=== PATIENT | female | born 1985 ===

== ENCOUNTER 2022-10-08 18:35 | Emergency (ER) | payer SELFPAY ==
[2022-10-08] MEDS ORDERED: Lactated Ringers 1,000 ML IV STA (19:38)
[2022-10-08] MEDS ORDERED: LORazepam 1 MG Tab PO ONE (19:49)
== END 2022-10-08 21:29 | disposition home or self-care (01) ==
LOC: MW.ED 18:35
DX: R42 Dizziness and giddiness (principal); F41.0 Panic disorder [episodic paroxysmal anxiety]; Z86.16 Personal history of COVID-19; Z20.822 Contact with and (suspected) exposure to COVID-19
CPT/HCPCS: 71045; 81003; 81025; 87635; 99284; A9270; U0002

== ENCOUNTER 2023-02-01 18:33 | Emergency (ER) | payer OTHER ==
[2023-02-02] MEDS ORDERED: LORazepam 1 MG Tab PO ONE (00:19)
== END 2023-02-02 00:30 | disposition home or self-care (01) ==
LOC: MW.ED 18:33
DX: F41.9 Anxiety disorder, unspecified (principal); M25.552 Pain in left hip; Z86.16 Personal history of COVID-19; V47.6XXA Car passenger injured in collision with fixed or stationary object in traffic accident, initial encounter; Y92.410 Unspecified street and highway as the place of occurrence of the external cause
CPT/HCPCS: 93005; 99284; A9270; 99283

== ENCOUNTER 2023-08-09 16:21 | Emergency (ER) | payer BC ==
[2023-08-09] MEDS ORDERED: LORazepam 1 MG Tab PO ONE (16:46)
[2023-08-09] MEDS ORDERED: Ketorolac 30 MG/ML SDV IM STA (16:47)
[2023-08-09 16:55] LABS: BASOPHILS PERCENT AUTO 0.1 % (0.0-1.5); EOSINOPHILS ABSOLUTE AUTO 0.1 K/uL (0.0-0.7); EOSINOPHILS PERCENT AUTO 1.2 % (0.0-7.0); HEMATOCRIT 39.2 % (36.0-46.0); HEMOGLOBIN 13.1 g/dL (12.0-16.0); LYMPHOCYTES ABSOLUTE AUTO 2.7 K/uL (0.6-2.4); LYMPHOCYTES PERCENT AUTO 31.6 % (16.0-40.0); MEAN CORPUSCULAR HEMOGLOBIN 28.7 pg (27.0-32.0); MEAN CORPUSCULAR HGB CONC 33.4 g/dL (31.0-37.0); MONOCYTES ABSOLUTE AUTO 0.3 K/uL (0.0-0.8); MONOCYTES PERCENT AUTO 3.4 % (0.0-15.0); NEUTROPHILS ABSOLUTE AUTO 5.4 K/uL (1.4-5.7); NEUTROPHILS PERCENT AUTO 63.7 % (48.0-80.0); NRBC ABSOLUTE 0 K/uL; PLATELET COUNT,PLT 201 K/uL (150-400); RED BLOOD CELL COUNT 4.56 M/uL (4.30-5.90); WHITE BLOOD CELL COUNT,WBC 8.41 K/uL (4.0-11.0)
[2023-08-09 17:22] LABS: A/G RATIO 0.9 (0.9-1.6); ALANINE AMINOTRANSFERASE,ALT 22 IU/L (14-63); ALBUMIN 3.5 g/dL (3.4-5.0); ALKALINE PHOSPHATASE 57 U/L (46-116); ASPARTATE AMNIOTRANSFERASE,AST 18 IU/L (15-37); BILIRUBIN TOTAL 0.3 mg/dL (0.2-1.0); BLOOD UREA NITROGEN,BUN 12 mg/dL (7.0-18.0); CALCIUM 8.8 mg/dL (8.5-10.1); CARBON DIOXIDE,CO2 23.7 mmol/L (21.0-32.0); CHLORIDE,CL 104 mmol/L (98-107); CREATININE 0.6 mg/dL (0.6-1.0); EST CRCL DRUG DOSING (CG) 105.16 mL/min; GLUCOSE RANDOM 116 mg/dL (74-106); MAGNESIUM 1.8 mg/dL (1.8-2.4); POTASSIUM,K 3.5 mmol/L (3.5-5.1); PROTEIN TOTAL,TP 7.3 g/dL (6.4-8.2); SODIUM,NA 137 mmol/L (136-145)
[2023-08-09 17:32] LABS: ESTIMATED GFR 118 mL/min (>60)
== END 2023-08-09 18:18 | disposition home or self-care (01) ==
LOC: MW.ED 16:21
DX: R07.89 Other chest pain (principal); Z86.16 Personal history of COVID-19
CPT/HCPCS: 36415; 71045; 80053; 83735; 84443; 84484; 84703; 85025; 85379; 93005; 96372; 99285; A9270; J1885; 93010; 99283

== ENCOUNTER 2023-08-24 15:02 | Emergency (ER) | payer BC ==
[2023-08-24] MEDS ORDERED: Sodium Chloride 0.9% 10 ML Syringe FLUSH PRN (16:18)
[2023-08-24] MEDS ORDERED: Sodium Chloride 0.9% 2.5 ML Syringe FLUSH PRN (16:18)
[2023-08-24] MEDS ORDERED: Lidocaine 1% 5 ML VIAL INJECT ONE (18:18)
[2023-08-24] MEDS ORDERED: Iopamidol 755 MG/ML 500 ML Multipack Bottle IVPUSH ONE (19:15)
[2023-08-24 19:35] LABS: BASOPHILS ABSOLUTE AUTO 0.01 K/uL (0.00-0.20); BASOPHILS PERCENT AUTO 0.1 % (0.0-1.0); EOSINOPHILS ABSOLUTE AUTO 0.07 K/uL (0.00-0.45); EOSINOPHILS PERCENT AUTO 0.7 % (0.0-6.0); HEMATOCRIT 40.2 % (37.0-47.0); HEMOGLOBIN 13.3 g/dL (12.0-16.0); LYMPHOCYTES ABSOLUTE AUTO 2.79 K/uL (1.00-4.80); MEAN CORPUSCULAR HEMOGLOBIN 28.7 pg (28.0-32.0); MEAN CORPUSCULAR HGB CONC 33.1 g/dL (32.0-36.0); MEAN CORPUSCULAR VOLUME 86.8 fL (83.0-99.0); MEAN PLATELET VOLUME 10.7 fL (9.4-12.3); MONOCYTES PERCENT AUTO 3.1 % (0.0-8.0); NEUTROPHILS ABSOLUTE AUTO 6.4 K/uL (1.8-7.7); NEUTROPHILS PERCENT AUTO 66.9 % (41.0-71.0); PLATELET COUNT,PLT 223 K/uL (150-400); RED BLOOD CELL COUNT 4.63 M/uL (4.10-5.30); WHITE BLOOD CELL COUNT,WBC 9.61 K/uL (3.9-11.3)
[2023-08-24 19:58] LABS: ALANINE AMINOTRANSFERASE,ALT 26 IU/L (14-63); ALBUMIN 3.8 g/dL (3.4-5.0); ALKALINE PHOSPHATASE 61 U/L (46-116); ASPARTATE AMNIOTRANSFERASE,AST 13 IU/L (15-37); BILIRUBIN TOTAL 0.3 mg/dL (0.2-1.0); BLOOD UREA NITROGEN,BUN 8 mg/dL (7.0-18.0); CALCIUM 8.6 mg/dL (8.5-10.1); CHLORIDE,CL 102 mmol/L (98-107); CREATININE 0.6 mg/dL (0.6-1.0); EST CRCL DRUG DOSING (CG) 104.13 mL/min; GLUCOSE RANDOM 93 mg/dL (74-106); POTASSIUM,K 3.6 mmol/L (3.5-5.1); PROTEIN TOTAL,TP 7.6 g/dL (6.4-8.2); SODIUM,NA 137 mmol/L (136-145)
[2023-08-24 20:00] LABS: ESTIMATED GFR 117 mL/min (>60)
[2023-08-24] MEDS ORDERED: Ketorolac 30 MG/ML SDV IM ONE (21:02)
[2023-08-24] MEDS ORDERED: Acetaminophen 325 MG Tab PO ONE (21:02)
[2023-08-24] MEDS ORDERED: Lidocaine 4% 1 each Patch TOP PRN (21:03)
== END 2023-08-24 21:20 | disposition home or self-care (01) ==
LOC: MW.ED 15:02
DX: R07.89 Other chest pain (principal); Z86.16 Personal history of COVID-19
CPT/HCPCS: 36415; 71275; 80053; 84484; 85025; 93005; 96372; 99285; A9270; J1885; J3490; Q9967; 93010; 99284

== ENCOUNTER 2023-11-26 19:32 | Emergency (ER) | payer BC ==
[2023-11-26] MEDS ORDERED: Sodium Chloride 0.9% 1,000 ML IV ONE (19:47)
[2023-11-26] MEDS ORDERED: Ondansetron 4 MG/2 ML SDV IVPUSH ONE (19:47)
[2023-11-26] MEDS ORDERED: hydrOXYzine HCl 25 MG Tab PO ONE (19:48)
[2023-11-26 20:15] LABS: BASOPHILS ABSOLUTE AUTO 0.01 K/uL (0.00-0.20); BASOPHILS PERCENT AUTO 0.2 % (0.0-1.0); EOSINOPHILS ABSOLUTE AUTO 0.11 K/uL (0.00-0.45); HEMATOCRIT 36.1 % (37.0-47.0); HEMOGLOBIN 12.3 g/dL (12.0-16.0); IMMATURE GRAN ABSOLUTE AUTO 0.02 K/uL (0.00-0.05); IMMATURE GRAN PERCENT AUTO 0.4 % (0.0-0.4); LYMPHOCYTES ABSOLUTE AUTO 1.35 K/uL (1.00-4.80); LYMPHOCYTES PERCENT AUTO 24.3 % (24.0-44.0); MEAN CORPUSCULAR HEMOGLOBIN 29.9 pg (28.0-32.0); MEAN CORPUSCULAR HGB CONC 34.1 g/dL (32.0-36.0); MEAN CORPUSCULAR VOLUME 87.8 fL (83.0-99.0); MEAN PLATELET VOLUME 10.7 fL (9.4-12.3); MONOCYTES ABSOLUTE AUTO 0.37 K/uL (0.00-0.80); MONOCYTES PERCENT AUTO 6.7 % (0.0-8.0); NEUTROPHILS ABSOLUTE AUTO 3.69 K/uL (1.80-7.70); NEUTROPHILS PERCENT AUTO 66.4 % (41.0-71.0); PLATELET COUNT,PLT 187 K/uL (150-400); RED BLOOD CELL COUNT 4.11 M/uL (4.10-5.30); WHITE BLOOD CELL COUNT,WBC 5.55 K/uL (3.9-11.3)
[2023-11-26 21:04] LABS: A/G RATIO 0.8 (0.9-1.6); ALBUMIN 3.2 g/dL (3.4-5.0); BILIRUBIN TOTAL 0.2 mg/dL (0.2-1.0); CALCIUM 8.3 mg/dL (8.5-10.1); CREATININE 0.6 mg/dL (0.6-1.0); EST CRCL DRUG DOSING (CG) 104.13 mL/min; POTASSIUM,K 3.5 mmol/L (3.5-5.1)
== END 2023-11-26 21:26 | disposition home or self-care (01) ==
LOC: MW.ED 19:32
DX: O99.340 Other mental disorders complicating pregnancy, unspecified trimester (principal); F41.9 Anxiety disorder, unspecified; O21.0 Mild hyperemesis gravidarum; Z3A.01 Less than 8 weeks gestation of pregnancy
CPT/HCPCS: 36415; 80053; 84702; 85025; 96361; 96374; 99284; A9270; J2405; J7030

== ENCOUNTER 2023-12-03 20:21 | Emergency (ER) | payer BC ==
[2023-12-03] MEDS ORDERED: Acetaminophen 500 MG Tab PO ONE (21:50)
== END 2023-12-03 22:03 | disposition home or self-care (01) ==
LOC: MW.ED 20:21
DX: L02.214 Cutaneous abscess of groin (principal); Z86.16 Personal history of COVID-19
CPT/HCPCS: 10060; 99283